=== PATIENT | female | born 1995 | race Caucasian/White ===

== ENCOUNTER 2019-08-01 01:01 | Observation (INO) ==
[2019-08-01] MEDS: Ondansetron 4 MG/2 ML VIAL IVP PRN ×2 (04:19→12:54)
[2019-08-01] MEDS ORDERED: Naloxone 0.4 MG/ML INJ IVP PRN (04:23)
[2019-08-01] MEDS: 0.9 % Sodium Chloride 1,000 ML IVC SCH ×2 (04:39→05:55)
[2019-08-01] MEDS ORDERED: Isovue-370 500 ML BOTTLE IVP ONE (04:43)
[2019-08-01] MEDS: Pantoprazole 40 MG VIAL IVP SCH ×2 (05:00→17:44)
[2019-08-01 05:13] LABS: Bilirubin,Urine Negative (Negative); Blood,Urine Negative (Negative); Clarity,Urine Clear (Clear); Color,Urine Yellow (Yellow); Glucose,Urine (UA) Normal (Normal); Ketones,Urine >=160 mg/dL (Negative); Leukocyte Esterase,Urine Negative (Negative); Nitrite,Urine Negative (Negative); PH,Urine 5.5 pH Units (5.0-8.0); Protein,Urine Negative (Neg-Trace); Specific Gravity,Urine 1.023 (1.010-1.025); Urobilinogen,Urine Normal (Normal)
[2019-08-01 05:14] LABS: Basophils % 0.1 %; Eosinophils % 0.3 %; Hematocrit 36.4 % (35.3-44.9); Hemoglobin 12.5 g/dL (11.5-15.4); Immature Granulocytes % 0.5 % (0-4); Lymphocytes # 1.6 K/mcL (0.6-4.6); Lymphocytes % 10.6 %; Mean Corpuscular HGB Conc 34.3 g/dL (31.6-35.5); Mean Corpuscular Hemoglobin 27.7 pg (28.0-33.3); Mean Corpuscular Volume 80.5 fL (83.0-100.0); Mean Platelet Volume 11.1 fL (9.4-12.4); Monocytes # 0.4 K/mcL (0.0-1.3); Monocytes % 2.9 %; Neutrophils # 12.6 K/mcL (1.6-8.9); Platelet Count 295 K/mcL (140-400); Red Blood Count 4.52 M/mcL (3.82-4.97); Red Cell Distribution Width 13.3 % (11.5-14.5); Segmented Neutrophils % 85.6 %; White Blood Count 14.7 K/mcL (4.3-11.1)
[2019-08-01 05:24] LABS: Amphetamine Screen,Urine Negative ng/mL (Cutoff=1000); Barbiturate Screen,Urine Negative ng/mL (Cutoff=200); Benzodiazepines Screen,Urine Negative ng/mL (Cutoff=200); Cannabinoid Screen,Urine Positive ng/mL (Cutoff = 50); Cocaine Screen,Urine Negative ng/mL (Cutoff= 300); Opiate Screen,Urine Negative ng/mL (Cutoff=300); Phencyclidine Screen,Urine Negative ng/mL (Cutoff=25)
[2019-08-01 05:35] LABS: Alanine Aminotransferase 19 Units/L (7-52); Albumin 4.6 g/dL (3.5-5.7); Albumin/Globulin Ratio 2.3 (1.1-2.2); Alkaline Phosphatase 55 Units/L (34-104); Aspartate Amino Transferase 21 Units/L (13-39); BUN/Creatinine Ratio 14 (6-26); Bilirubin,Total 0.8 mg/dL (0.3-1.0); Blood Urea Nitrogen 9 mg/dL (6-20); Calcium 9.3 mg/dL (8.6-10.3); Carbon Dioxide 14 mEq/L (23-29); Chloride 105 mEq/L (98-107); Glucose 106 mg/dL (70-105); Magnesium 1.6 mg/dL (1.6-2.6); Osmolality,Calculated 283 (280-300); Phosphorous 2.4 mg/dL (2.7-4.5); Potassium 3.6 mEq/L (3.5-5.1); Sodium 137 mEq/L (136-145); Total Protein 6.6 g/dL (6.4-8.9); eGFR For African Americans > 60 (> 60); eGFR For Non-African Americans > 60 (> 60)
[2019-08-01] MEDS ORDERED: Sucralfate 1 GM TABLET PO PRN (08:24)
[2019-08-01] MEDS ORDERED: hydrOXYzine pamoate 25 MG CAPSULE PO PRN (08:24)
[2019-08-01] MEDS: Famotidine 20 MG TABLET PO SCH ×2 (09:10→20:17)
[2019-08-01] MEDS ORDERED: Lurasidone 20 MG TABLET PO SCH (21:00)
[2019-08-02 02:51] LABS: Hematocrit 33.2 % (35.3-44.9); Hemoglobin 11.7 g/dL (11.5-15.4); Mean Corpuscular HGB Conc 35.2 g/dL (31.6-35.5); Mean Corpuscular Hemoglobin 28.3 pg (28.0-33.3); Mean Corpuscular Volume 80.2 fL (83.0-100.0); Platelet Count 245 K/mcL (140-400); Red Blood Count 4.14 M/mcL (3.82-4.97); Red Cell Distribution Width 13.7 % (11.5-14.5); White Blood Count 13.7 K/mcL (4.3-11.1)
[2019-08-02 03:12] LABS: BUN/Creatinine Ratio 6 (6-26); Blood Urea Nitrogen 3 mg/dL (6-20); Carbon Dioxide 18 mEq/L (23-29); Chloride 109 mEq/L (98-107); Glucose 79 mg/dL (70-105); Osmolality,Calculated 283 (280-300); Potassium 3.1 mEq/L (3.5-5.1); Sodium 139 mEq/L (136-145); eGFR For African Americans > 60 (> 60); eGFR For Non-African Americans > 60 (> 60)
[2019-08-02] MEDS: Pantoprazole 40 MG VIAL IVP SCH (05:51)
[2019-08-02] MEDS: Famotidine 20 MG TABLET PO SCH (08:46)
[2019-08-02] MEDS ORDERED: Potassium Chloride Elixir 20 MEQ/15 ML UDC PO ONE (09:13)
[2019-08-02] MEDS ORDERED: Sucralfate 1 GM TABLET PO SCH (09:15)
[2019-08-02] MEDS ORDERED: GI Cocktail 40 ML EACH PO ONE (10:49)
[2019-08-02 13:04] VITALS: BP 124/88
== END 2019-08-02 13:17 | disposition home or self-care (01) ==
LOC: 3BNU → SUATTDRO 02:09
PROVIDERS: ADMIT Family Medicine; ATTEND Internal Medicine